=== PATIENT | male | born 1970 | race Caucasian/White ===

== ENCOUNTER 2017-07-25 21:25 | Observation (INO) ==
--- NOTE | 2017-07-25 21:29 | Emergency Department Note ---
Disposition Referrals: Nia Kirkpatrick CNP [Primary Care Provider] - General Adult HPI - General Stated complaint: Chest pain Time Seen by Provider: 07/25/17 21:27 Nursing Notes Reviewed: Yes Vital Signs Reviewed: Yes - History of Present Illness HPI Narrative: Patient presents today with CC of: Chest pain Patient describes issue began around 2 days ago he started having palpitations. He said his heart was beating so hard that it felt like the shaking. He was at night when he had these symptoms and he has not other symptoms that started tonight 45 minutes prior to arrival where he had chest pain which she described as a sharp electric feeling in his central chest. he also had some tingling in his fingers. Described the pain as sharp pain he also got short of breath and sent he was sweaty. He did not have any nausea vomiting or diarrhea. He has not had any fever he has not had a cough sputum production or hemoptysis. Patient denies any leg swelling or tenderness. - Related Data Home Medications Medication Instructions Recorded Confirmed Unable To Obtain [Unable to Obtain] 07/25/17 07/25/17 Allergies Allergy/AdvReac Type Severity Reaction Status Date / Time No Known Allergies Allergy Verified 07/25/17 21:32 Past Medical History - Past Medical History Medical history: Reports: migraine, seizures, other Psychiatric history: Reports: anxiety, bipolar, depression, PTSD - Social History Smoking Status: Current every day smoker Smokeless Tobacco Status: No Alcohol use: Reports: none Drug use: Reports: methamphetamine Physical Exam I have reviewed initial and available nurse's notes for the patient. The patient 's medications, allergies, and medical history was reviewed. Family, Social & Surg histories were reviewed and are not relevant except as noted above in the history of present illness, or below in the respective specific section. I have reviewed and agree with all vital signs synchronously available in EMR at the time of this dictation. Times documented are the time of computer entry, are not necessarily the time the event occurred. At least 10 systems reviewed with patient or surrogate during physical exam and are otherwise negative. Physical EXAM: General ~ Constitutional: Conscious & cooperative , generally healthy appearance Head: NCAT Eyes: Sclera white , conjunctiva clear , PERRL, non-icteric ENT : L Tympanic membrane normal color and landmarks R Tympanic membrane normal color and landmarks Canals are clear without significant drainage , no obstruction or vesicles , pinna and tragus non tender Nose with pink nasal mucosa, nares patent, non tender without bleeding Mouth - mucous membrane moist , pink , no lesions , no trismus Neck - no masses , supple , no cervical spinous process tenderness Pharynx - no exudate , no petechia or obvious lesions , no airway obstruction or stridor Hematologic ~ Lymphatic ~ Immunologic: Lymphadenopathy normal , no petechia , Skin color, nails and pulses unremarkable. Heart ~ Chest: Reg rate , nml Rhythm , nl S1/S2 , no MRG Lungs: Breath sounds equal , clear to auscultation bilaterally , no wheezing, no rales or rhonchi , no CVA tenderness Gastrointestinal ~ Abd: Soft & non tender , BS + in 4 quads , No HSM or masses , no peritoneal signs GenitoUrinary: Deferred Musculoskeletal ~ Back ~ Extremities: Warm and w/o clubbing , cyanosis , or edema. No point tenderness , good ROM of major joints Neurologic: Cranial nerves grossly intact, good muscle strength , attention good , cooperative , Alert and oriented x4 Psychiatric: Calm , Insight and mood appropriate , Skin: No rashes , good skin turgor , cap refill 2-3 seconds , warm and dry Course Vital Signs Temperature 99.2 F 07/25/17 21:33 Pulse Rate 92 07/25/17 21:33 Respiratory Rate 18 07/25/17 21:33 Blood Pressure 129/91 07/25/17 21:33 O2 Sat by Pulse Oximetry 96 07/25/17 21:33 Temperature 99.2 F 07/25/17 21:33 Pulse Rate 76 07/25/17 23:22 Respiratory Rate 14 07/25/17 23:22 Blood Pressure 121/81 07/25/17 23:22 O2 Sat by Pulse Oximetry 94 07/25/17 23:22 Oxygen Delivery Oxygen Delivery Room Air Medical Decision Making - MDM Narrative Medical decision making narrative: MDM: History and physical exam is consistent with - atypical CP,palpitations DDx included multiple etiologies for the symptoms such as - atypical CP, palpitations, ACS, Pneumonia, pneumothorax, Gerd, AAA, PE XRAYS: No Acute CP disease Critical Care: None nrml=0 EKG interpretation: Rhythm - 90 Rate - sr [place] - 126 QRS - 86 QTC - 376 ST-T waves - no specific ST or T-wave changes Injury pattern - no acute injury pattern <nrml=0 HEART SCORE : H=1 E=0 A=0 R=2 T=0 HEART Score: H= Suspiciousness: High=2, mod=1, min=0 E= EKG: Significant ST=2, nonspecific repol=1, normal=0 A= Age: >65 =2, 45-65=1, ,45=0 R= Risk Factors: >3 RF or hx of ASVD=2, 1-2 RF=1, 0 RF=0 smoker, Lipids, HTN, diabetes mellitus, + family history, obesity, T= Troponin: >3xnrml=2, 1-3Xnrml=1, <nrml=0 Condition and evaluation here was discussed in detail. Labwork, and test results were reviewed with the patient - Medical Records Medical records reviewed: Yes I reviewed the patient's medical records. - Lab Data Lab results reviewed: Yes I reviewed the patient's lab results. Result diagrams: 07/25/17 21:45 07/25/17 21:45 Lab Results 07/25/17 07/25/17 07/25/17 Range/Units 21:45 21:45 21:45 WBC 12.8 H (4.3-11.1) K/mcL RBC 4.94 (4.19-5.50) M/mcL Hgb 14.6 (12.9-16.9) g/dL Hct 42.8 (37.5-50.1) % MCV 86.6 (83.0-100.0) fL MCH 29.6 (28.0-33.3) pg MCHC 34.1 (31.6-35.5) g/dL RDW 13.0 (11.5-14.5) % Plt Count 226 (140-400) K/mcL MPV 11.1 (9.4-12.4) fL Immature Gran % 0.4 (0-4) % Seg Neutrophils % 69.2 % Lymphocytes % 17.7 % Monocytes % 9.2 % Eosinophils % 3.0 % Basophils % 0.5 % Neutrophils # 8.9 (1.6-8.9) K/mcL Lymphocytes # 2.3 (0.6-4.6) K/mcL Monocytes # 1.2 (0.0-1.3) K/mcL Eosinophils # 0.4 (0.0-0.6) K/mcL Basophils # 0.1 (0.0-0.2) K/mcL Sodium 138 (136-145) mEq/L Potassium 3.9 (3.5-4.5) mEq/L Chloride 105 (98-109) mEq/L Carbon Dioxide 25 (19-29) mEq/L BUN 11 (8-26) mg/dL Creatinine 0.83 (0.72-1.25) mg/dL Est GFR ( Amer) > 60 (> 60) Est GFR (Non-Af Amer) > 60 (> 60) BUN/Creatinine Ratio 13 (6-26) Glucose 97 (70-99) mg/dL Calculated Osmolality 285 (280-300) Calcium 9.4 (8.6-10.8) mg/dL Troponin I 0.02 (0-0.03) ng/mL
[2017-07-25 21:55] LABS: Basophils # 0.1 K/mcL (0.0-0.2); Basophils % 0.5 %; Eosinophils # 0.4 K/mcL (0.0-0.6); Hematocrit 42.8 % (37.5-50.1); Hemoglobin 14.6 g/dL (12.9-16.9); Immature Granulocytes % 0.4 % (0-4); Lymphocytes # 2.3 K/mcL (0.6-4.6); Lymphocytes % 17.7 %; Mean Corpuscular HGB Conc 34.1 g/dL (31.6-35.5); Mean Corpuscular Hemoglobin 29.6 pg (28.0-33.3); Mean Corpuscular Volume 86.6 fL (83.0-100.0); Mean Platelet Volume 11.1 fL (9.4-12.4); Monocytes # 1.2 K/mcL (0.0-1.3); Monocytes % 9.2 %; Neutrophils # 8.9 K/mcL (1.6-8.9); Platelet Count 226 K/mcL (140-400); Red Blood Count 4.94 M/mcL (4.19-5.50); Segmented Neutrophils % 69.2 %
[2017-07-25 22:06] LABS: BUN/Creatinine Ratio 13 (6-26); Blood Urea Nitrogen 11 mg/dL (8-26); Calcium 9.4 mg/dL (8.6-10.8); Carbon Dioxide 25 mEq/L (19-29); Chloride 105 mEq/L (98-109); Glucose 97 mg/dL (70-99); Osmolality,Calculated 285 (280-300); Potassium 3.9 mEq/L (3.5-4.5); Sodium 138 mEq/L (136-145); eGFR For African Americans > 60 (> 60); eGFR For Non-African Americans > 60 (> 60)
[2017-07-26] MEDS ORDERED: Ondansetron ODT 4 MG TAB.RAPDIS SL PRN (01:50)
[2017-07-26] MEDS ORDERED: Acetaminophen 325 MG TABLET PO PRN (01:50)
[2017-07-26] MEDS ORDERED: Naloxone 0.4 MG/ML INJ IVP PRN (01:50)
[2017-07-26 02:12] LABS: Basophils # 0.1 K/mcL (0.0-0.2); Basophils % 0.7 %; Eosinophils # 0.5 K/mcL (0.0-0.6); Eosinophils % 4.3 %; Hematocrit 45.7 % (37.5-50.1); Hemoglobin 15.6 g/dL (12.9-16.9); Immature Granulocytes % 0.3 % (0-4); Lymphocytes # 2.9 K/mcL (0.6-4.6); Lymphocytes % 24.7 %; Mean Corpuscular HGB Conc 34.1 g/dL (31.6-35.5); Mean Corpuscular Volume 87.9 fL (83.0-100.0); Monocytes # 0.9 K/mcL (0.0-1.3); Monocytes % 7.4 %; Platelet Count 265 K/mcL (140-400); Red Cell Distribution Width 13.2 % (11.5-14.5); Segmented Neutrophils % 62.6 %
[2017-07-26 02:13] LABS: Neutrophils # 7.5 K/mcL (1.6-8.9)
[2017-07-26] MEDS: 0.9 % Sodium Chloride 1,000 ML IVC SCH ×2 (02:21→10:52)
[2017-07-26 02:29] LABS: Alanine Aminotransferase 14 Units/L (0-55); Albumin 3.7 g/dL (3.5-5.0); Alkaline Phosphatase 88 Units/L (38-126); Aspartate Amino Transferase 15 Units/L (5-34); BUN/Creatinine Ratio 15 (6-26); Bilirubin,Total 0.3 mg/dL (0.2-1.2); Blood Urea Nitrogen 12 mg/dL (8-26); Calcium 9.2 mg/dL (8.6-10.8); Carbon Dioxide 24 mEq/L (19-29); Chloride 105 mEq/L (98-109); Globulin 3.7 g/dL (2.4-3.5); Glucose 98 mg/dL (70-99); Osmolality,Calculated 284 (280-300); Potassium 4.2 mEq/L (3.5-4.5); Sodium 137 mEq/L (136-145); Total Protein 7.4 g/dL (6.0-8.3); eGFR For African Americans > 60 (> 60); eGFR For Non-African Americans > 60 (> 60)
[2017-07-26] MEDS ORDERED: hydrOXYzine pamoate 25 MG CAPSULE PO PRN (02:29)
[2017-07-26] MEDS ORDERED: *HR* Enoxaparin 40 MG/0.4 ML SYRINGE SQ SCH (06:00)
[2017-07-26] MEDS ORDERED: lamoTRIgine 25 MG TABLET PO SCH (09:00)
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
[2017-07-26 11:53] VITALS: BP 110/71
--- NOTE | 2017-07-26 12:05 | Discharge Summary ---
Date of Encounter: 07/26/17 Time of Encounter: 12:02 - Discharge Diagnosis (1) Chest pain Priority: Primary Status: Acute Comments: See the history and physical for admission and discharge details. Qualifiers: Qualified Code(s): R07.9 - Chest pain, unspecified (2) Post-traumatic stress syndrome Priority: Secondary Status: Chronic (3) Anxiety Priority: Secondary Status: Chronic (4) Hx of intravenous drug use in remission Priority: Secondary Status: Acute (5) History of illicit drug use Priority: Secondary Status: Chronic (6) Hepatitis C Priority: Secondary Status: Chronic Qualifiers: Viral hepatitis chronicity: chronic Qualified Code(s): B18.2 - Chronic viral hepatitis C (7) Hypogonadism male Priority: Secondary Status: Chronic - Discharge Medications Home Medications: Doxazosin Mesylate [Cardura] 2 mg PO HS 07/26/17 [History] Venlafaxine HCl 50 mg PO DAILY 07/26/17 [History] hydrOXYzine HCl [Hydroxyzine HCl] 25 mg PO Q8HR PRN 07/26/17 [History] Allergies/Adverse Reactions: 3 Allergy/AdvReac Type Severity Reaction Status Date / Time No Known Allergies Allergy Verified 07/25/17 21:32 Procedures/tests Complete & Pending: Laboratory Results - last 24 hr 07/25/17 07/25/17 07/25/17 21:45 21:45 21:45 WBC 12.8 H RBC 4.94 Hgb 14.6 Hct 42.8 MCV 86.6 MCH 29.6 MCHC 34.1 RDW 13.0 Plt Count 226 MPV 11.1 Immature Gran % 0.4 Seg Neutrophils % 69.2 Lymphocytes % 17.7 Monocytes % 9.2 Eosinophils % 3.0 Basophils % 0.5 Neutrophils # 8.9 Lymphocytes # 2.3 Monocytes # 1.2 Eosinophils # 0.4 Basophils # 0.1 Sodium 138 Potassium 3.9 Chloride 105 Carbon Dioxide 25 BUN 11 Creatinine 0.83 Est GFR ( Amer) > 60 Est GFR (Non-Af Amer) > 60 BUN/Creatinine Ratio 13 Glucose 97 Calculated Osmolality 285 Calcium 9.4 Total Bilirubin AST ALT Alkaline Phosphatase Troponin I 0.02 Serum Total Protein Albumin Globulin Albumin/Globulin Ratio 07/26/17 07/26/17 07/26/17 02:00 02:00 02:00 WBC 11.9 H RBC 5.20 Hgb 15.6 Hct 45.7 MCV 87.9 MCH 30.0 MCHC 34.1 RDW 13.2 Plt Count 265 MPV 11.0 Immature Gran % 0.3 Seg Neutrophils % 62.6 Lymphocytes % 24.7 Monocytes % 7.4 Eosinophils % 4.3 Basophils % 0.7 Neutrophils # 7.5 Lymphocytes # 2.9 Monocytes # 0.9 Eosinophils # 0.5 Basophils # 0.1 Sodium 137 Potassium 4.2 Chloride 105 Carbon Dioxide 24 BUN 12 Creatinine 0.81 Est GFR ( Amer) > 60 Est GFR (Non-Af Amer) > 60 BUN/Creatinine Ratio 15 Glucose 98 Calculated Osmolality 284 Calcium 9.2 Total Bilirubin 0.3 AST 15 ALT 14 Alkaline Phosphatase 88 Troponin I 0.02 Serum Total Protein 7.4 Albumin 3.7 Globulin 3.7 H Albumin/Globulin Ratio 1.0 L 07/26/17 07:48 WBC RBC Hgb Hct MCV MCH MCHC RDW Plt Count MPV Immature Gran % Seg Neutrophils % Lymphocytes % Monocytes % Eosinophils % Basophils % Neutrophils # Lymphocytes # Monocytes # Eosinophils # Basophils # Sodium Potassium Chloride Carbon Dioxide BUN Creatinine Est GFR ( Amer) Est GFR (Non-Af Amer) BUN/Creatinine Ratio Glucose Calculated Osmolality Calcium Total Bilirubin AST ALT Alkaline Phosphatase Troponin I 0.01 Serum Total Protein Albumin Globulin Albumin/Globulin Ratio Date of admission: 07/26/17 01:24 Primary care physician: Nia Kirkpatrick CNP Discharging clinician: Temo Coelho Anticipated date of discharge: 07/26/17 - Patient Status Disposition: Home, Self-Care Condition: Good Functional capacity at discharge: independent ambulation Overall status at discharge: patient is back to baseline - Discharge Instructions Follow Up With: Nia Kirkpatrick CNP [Primary Care Provider] - 07/31/17 11:40 am Forms: ED Satisfaction Letter - Diet and Activity Activity: increase activity as tolerated Diet: low fat, low cholesterol Hospital course: Mr. Hamm is a 47 year old male with a history of previous drug use, hepatitis C history and prior traumatic stress disorder was admitted overnight with history of chest pain. Please see the history and physical that outlines the initial presentation and exam at discharge. He has being sent home from this observation bed. - Time Spent with Patient Total time spent providing and/or coordinating discharge services: - Constitutional Vitals: Temp Pulse Resp BP Pulse Ox 98.0 F 71 16 110/71 96 07/26/17 11:00 07/26/17 11:00 07/26/17 11:00 07/26/17 11:00 07/26/17 11:00 General appearance: Present: A&O X 3, no acute distress, answers questions appropriately - Respiratory Respiratory exam: Present: CTAB - Cardiovascular Cardiovascular exam: Present: RRR, +S1, +S2. Absent: systolic murmur - GI/Abdominal GI/Abdominal exam: Present: soft. Absent: hepatomegaly, splenomegaly, tenderness - Extremities Exam Extremities exam: Absent: calf tenderness, tenderness - Neurological Exam Neurological exam: Present: CN II-XII intact, no focal deficits - Psychiatric Psychiatric exam: Present: normal affect, normal mood. Absent: suicidal ideation
--- NOTE | 2017-07-27 09:26 | Electrocardiograph Report ---
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
--- NOTE | 2017-07-27 09:30 | Electrocardiograph Report ---
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
== END 2017-07-26 13:05 | disposition home or self-care (01) ==
LOC: INPGRE 21:25 → EMEROOGRE 21:25 → INPGRE 07-26 01:32
PROVIDERS: ADMIT Internal Medicine; ATTEND Family Medicine